=== PATIENT | female | born 1945 | race African-American/Black ===

== ENCOUNTER 2021-01-13 19:33 | Emergency (ER) | payer BC, OTHER ==
[~2021-01-13] VITALS: Ht 170.2 cm; Wt 68.0 kg
[2021-01-13 20:20] LABS: Basophils # (auto) 0 10 ^3/uL (0-0.2); Eosinophils # (auto) 0.1 10 ^3/uL (0-0.8); Monocytes # (auto) 0.4 10 ^3/uL (0-1.3); Red Cell Distribution Width 16.7 % (11.8-14.3)
[2021-01-13 20:23] LABS: Basophils % (auto) 0.7 % (0.0-2.0); Eosinophils % (auto) 2.5 % (0.0-7.0); Hematocrit 32.2 % (36.0-46.0); Hemoglobin 10.4 g/dL (12.2-16.2); Lymphocytes % (auto) 26.8 % (10.0-50.0); Mean Corpuscular Hgb Conc. 32.3 g/dL (32.0-36.0); Mean Corpuscular Volume 64.8 fL (80.0-100.0); Monocytes % (auto) 11.2 % (0.0-12.0); Neutrophils # (auto) 2.1 10 ^3/uL (1.6-8.6); Neutrophils % (auto) 58.8 % (37.0-80.0); Nucleated Red Blood Cells % 0.4 %; Platelet Count (auto) 612 10^3/uL (140-450); Red Blood Cells 4.97 10^6/uL (4.0-5.20); White Blood Cell 3.6 10^3/uL (4.4-10.8)
[2021-01-13 20:41] LABS: Potassium 3.8 mmol/L (3.5-5.1)
[2021-01-13 20:48] LABS: Albumin 3.3 g/dL (3.4-5.0); BUN/Creatinine Ratio 26.2; Bilirubin, Total 0.3 mg/dL (0.2-1.0); Calcium 9.1 mg/dL (8.5-10.1); Total Protein 9.4 g/dL (6.4-8.2)
[2021-01-13 23:06] LABS: Urine Bacteria FEW /hpf (None Seen); Urine Blood Negative /uL (Negative); Urine Mucus FEW (None Seen); Urine Specific Gravity 1.018 (1.001-1.035); Urine WBC 6 /hpf (0 - 5)
[2021-01-14] MEDS ORDERED: IOHEXOL 300 MG/ML 100ML BOTTLE IJ ONE (02:34)
[2021-01-14 05:04] VITALS: BP 115/75
== END 2021-01-14 05:33 | disposition home or self-care (01) ==
LOC: ER 19:41
DX: R18.8 Other ascites (principal); R10.84 Generalized abdominal pain
CPT/HCPCS: 36415; 80053; 81001; 82150; 83690; 85025; 93005